=== PATIENT | female | born 1960 | race Caucasian/White ===

== ENCOUNTER → 2019-12-01 13:30 | Outpatient (CLI) | payer OTHER | END | disposition home or self-care (01) | LOC: D.MRI 13:30 | PROVIDERS: ATTEND Nurse Practitioner Family | DX: S83.242A Other tear of medial meniscus, current injury, left knee, initial encounter (principal) ==

== ENCOUNTER → 2020-04-30 13:17 | Outpatient (CLI) | payer OTHER | END | disposition home or self-care (01) | LOC: D.MRI 13:17 | PROVIDERS: ATTEND Nurse Practitioner Family | DX: S83.206A Unspecified tear of unspecified meniscus, current injury, right knee, initial encounter (principal) ==

== ENCOUNTER → 2020-07-14 18:27 | Outpatient (CLI) | payer OTHER | END | disposition home or self-care (01) | LOC: D.LABREF 18:27 | PROVIDERS: ATTEND Orthopaedic Surgery | DX: M17.11 Unilateral primary osteoarthritis, right knee (principal) ==

== ENCOUNTER 2020-08-17 12:29 | Observation (INO) | payer OTHER ==
[2020-08-11 11:22] LABS: BILIRUBIN NEGATIVE (NEGATIVE); KETONE NEGATIVE mg/dL (< 1+); NITRITE NEGATIVE (NEGATIVE); PH 6.5 (5.0-8.0); UROBILINOGEN NORMAL mg/dL (< 2)
[2020-08-11 12:58] LABS: BASOPHILS 0.7 % (0-2); EOSINOPHILS 1.2 % (0-7); HEMATOCRIT 41.6 % (36.0-48.0); HEMOGLOBIN 13.6 g/dL (12-16); LYMPHOCYTES 28.9 % (15-50); MCH 29.4 pg (26.0-34.0); MCHC 32.8 g/dL (31.0-37.0); MCV 89.7 fL (80.0-100.0); MEAN PLATELET VOLUME 8.7 fL (7.4-10.4); MONOCYTES 6.3 % (2-11); NEUTROPHILS 62.9 % (40-80); PLATELET COUNT 294 10x3/uL (130-400); RBC 4.63 10x6/uL (4.00-5.40); RDW 12.9 % (11.5-14.5); WBC 8.5 10x3/uL (4.8-10.8)
[2020-08-11 13:04] LABS: CALC OSMOLALITY 279 mosm/kg (275-300); CALCIUM 8.7 mg/dL (8.5-10.1); CARBON DIOXIDE 29.4 mmol/L (21.0-32.0); CHLORIDE - SERUM 102 mmol/L (98-107); CREATININE - SERUM 0.6 mg/dL (0.6-1.3); GLUCOSE 120 mg/dL (74-106); POTASSIUM - SERUM 3.8 mmol/L (3.5-5.1); SODIUM 140 mmol/L (136-145); UREA NITROGEN 13 mg/dL (7-18); eGFR NON AFRICAN AMERICAN > 90 mL/min (90-120)
[2020-08-11 13:12] LABS: APTT 28.2 SECONDS (22.8-39.4)
[2020-08-11 13:14] LABS: INR 1.1 (0.85-1.17); PROTIME 13.1 SECONDS (11.6-15.0)
[~2020-08-17] VITALS: Ht 154.9 cm; Wt 72.7 kg
[2020-08-17] VITALS (9 sets, daily range): BP systolic 97–138; BP diastolic 51–77; Ht 154.9 cm; Wt 72.7 kg
--- NOTE | 2020-08-17 11:09 | NUR ---
PT RECIVED SPINAL FROM ANESTHEISA BEFORE PROCEDURE. PT VOICES NO PAIN AT THIS TIME.
--- NOTE | 2020-08-17 11:40 | NUR ---
DISCUSSED PT BP WITH ANESTHEISA AIRPORT SECURITY SCREENER. MAP IS ABOVE 65. BP IS 90/48 RIGHT NOW. PT IS A&OX4. VSS. DENIES ANY PAIN. ANESTHIEA APPROVED FOR PT TO GO TO FLOOR LONG MAP STAYS ABOUVE 60.
--- NOTE | 2020-08-17 12:10 | NUR ---
TALKED WITH ANESTHEISA HEAD WAITER/WAITRESS FLORENTIN SUTTON. V.O TO GIVE 500ML LR BOLUS AT THIS TIME. V.O READ BACK CORRECT.
[~2020-08-17 12:29] MED LIST: AMBIEN10 MG PO; CELEBREX200 MG PO; ESTRACE1 MG PO; GABAPENTIN300 MG PO; LISINOPRIL5 MG PO
--- NOTE | 2020-08-17 12:30 | NUR ---
V.O FROM ANESTHEISA FLORENTIN FAMILY RESOURCE COORDINATOR TO GIVE 10MG IV EPHEDRINE AT THIS TIME. V.O READ BACK CORRECT.
--- NOTE | 2020-08-17 12:57 | NUR ---
HIBACLENS AND ALCOHOL USED TO CLEAN BEFORE PREPPING. STERILE GOWNED AND GLOVED TO PREP ENTIRE LEG. THROUGH TRAFFIC KEPT TO A MINIMUM.
--- NOTE | 2020-08-17 14:20 | OP ---
PATIENT NAME: GISSEL PATTERSON MEDICAL RECORD: [id number] :62 LOCATION:[id number] ADMISSION DATE:08/17/20 SURGEON: JAREN OSEGUERA DO DATE OF OPERATION: 08/17/2020 PROCEDURE PERFORMED: Right total knee arthroplasty. PREOPERATIVE DIAGNOSIS: Right knee osteoarthritis. POSTOPERATIVE DIAGNOSIS: Right knee osteoarthritis. INDICATIONS: Ms. Patterson is a 60-year-old female who has had right knee pain for quite some time. She has tried all manner of nonoperative treatment including injections, home physical therapy to no avail. She got to a point where she was tired dealing with the pain as it was affecting her activities of daily living and she wants something done surgically. She was aware of the risk of it including infection, bleeding, fracture, damage to nerves or vessels, need for further surgery, failure of implants, continued pain, blood clots and even . SURGEON: Jaren Oseguera DO OPERATIVE PROCEDURE: The patient received a spinal and a block by anesthesia in the preoperative area. He was taken to the operative suite, laid in supine position, given light sedation, given 2 grams of Ancef, 80 mg of gentamicin and a gram of TXA. The right lower extremity was then prepped and draped in sterile fashion. A timeout was performed. Everyone was in agreeance with the correct side, site, patient and procedure. I then marked out the incision, covered in Ioban. I then used a 10-blade scalpel, made careful dissection down through the skin to the capsule and used the fresh 10-blade to do a medial parapatellar approach through the capsule, coagulating any vessels with Aquamantys. I then everted the patella and removed the fat pad and milled the patella down to 13-mm. I then drilled for 29, 3-hole patellar implant and then exposed the femur, removed the ACL, drilled into the femoral canal and to the distal femur, cut off the intramedullary guide. Cement was ready, I cemented the patella. Put the cement after irrigating on the patella and on the implant and squeezed in into place and removed the excess cement. I then exposed the tibia and cut the proximal tibia and removed the menisci with the knee in extension. After removing the tibial cut, I then put the 10 extension block and it fit well. I then flexed the knee. There was one chunk on the lateral tibia of bone that I removed at that time and then measured the femur to be a 7. I used the 4-in-1 cutting block then after placing the block and using the agnes wing to ensure there was no notching. I pinned into place and cut the femur through the 4-in-1 cutting block. After doing that, I removed the cutting block and removed the bone, exposed the tibia and sized it to be a D. I pinned that and put the trial on. By that time, the cement had hardened and I had removed the squeezer on the patella. I then put on the trial femur and put a 10 poly in between. It fit very well. Had good motion, flexion, extension and good stability in varus valgus stress. I then drilled the lug holes on the femur, decided to go with a narrow, removed the femoral trial and then reamed the holes for the TM tibia. I then removed the trial and impacted on the implant after irrigating thoroughly and then impacted the femoral implant on and then put in the 10 poly medial congruent bearing and squeezed it into place. I then irrigated with 10% povidone iodine and 500 mL normal saline solution, it was for approximately 3 minutes and irrigated out with a liter of normal saline, put in Idris and OPERATIVE REPORT [id number] GISSEL PATTERSON vancomycin and tobramycin powder, then closed the capsule with #1 Vicryl in [id number] fashion. Chad Shen, certified surgical first aid teacher then closed over the capsule with a Stratafix. I then closed the skin with 2-0 Vicryl inverted interrupted fashion and placed a ZipLine, Adaptic, 4 x 4s, ABD, Webril, Byron wrap and a ALEXIA hose up to the knee. She was then awakened and taken to recovery in stable condition and given another gram of TXA. Blood loss was approximately 200 mL. COMPLICATIONS: None. TRANSINT:[id number] Voice Confirmation ID: [id number] DOCUMENT ID: [id number] JAREN OSEGUERA DO at 1429 CC: [id number] DICTATION DATE: 08/17/20 1144 MISCELLANEOUS MACHINE OPERATOR: 08/17/20 1409 ADM IN [facility] [address] [facility] [place] [address]
--- NOTE | 2020-08-17 15:31 | NUR ---
C/O PAIN TO RIGHT KNEE. STATES 5/. BP 109/54. TORADOL GIVEN IV. PATIENT STATES ONLY USES ADVIL OR MOTRIN AT HOME FOR PAIN CONTROL. CALL LIGHT IN REACH. FALL PRECAUTIONS IN PLACE
--- NOTE | 2020-08-17 16:44 | NUR ---
PLACED ON BEDPAN AND VOIDED LARGE AMOUNT. STATES TORADOL HELPED BUT NOT COMPLETELY OUT OF PAIN. FALL PRECAUTIONS IN PLACE AND ICE BAG TO KNEE
--- NOTE | 2020-08-17 16:59 | NUR ---
DR OSEGUERA CALLED REGARDING BP OF 102/57. PT STATES PAIN MED ONLY CONSIST OF MOTRIN AT HOME AND IS WHOOZY WITH ANYTHING STRONG. NEW ORDERS RECIEVED.
--- NOTE | 2020-08-17 18:01 | NUR ---
PLACED ON CPM MACHINE. STATES PAIN IS 7/10 NORCO GIVEN. CALL LIGHT IN REACH
--- NOTE | 2020-08-17 20:00 | NUR ---
ALERT RESTING IN BED CPM IN USE, REPORTS MILD PAIN TO RIGHT KNEE, SEE SHIFT ASSESSMENT, CALL LIGHT IN REACH
[2020-08-18 00:16] VITALS: BP 120/72
[2020-08-18 05:37] VITALS: BP 131/59
[2020-08-18 07:14] LABS: BASOPHILS 0.5 % (0-2); EOSINOPHILS 1.7 % (0-7); HEMATOCRIT 33.9 % (36.0-48.0); HEMOGLOBIN 11.2 g/dL (12-16); LYMPHOCYTES 14.7 % (15-50); MCH 29.4 pg (26.0-34.0); MCHC 33.1 g/dL (31.0-37.0); MCV 88.9 fL (80.0-100.0); MEAN PLATELET VOLUME 8.6 fL (7.4-10.4); MONOCYTES 12.1 % (2-11); PLATELET COUNT 253 10x3/uL (130-400); RBC 3.81 10x6/uL (4.00-5.40); RDW 13.5 % (11.5-14.5); WBC 8.8 10x3/uL (4.8-10.8)
[2020-08-18 08:00] LABS: ALBUMIN 2.8 g/dL (3.4-5.0); ALKALINE PHOSPHATASE 46 U/L (30-120); ALT (SGPT) 24 U/L (10-68); BILIRUBIN - TOTAL 0.35 mg/dL (0.2-1.3); CALC OSMOLALITY 272 mosm/kg (275-300); CALCIUM 7.4 mg/dL (8.5-10.1); CARBON DIOXIDE 26.9 mmol/L (21.0-32.0); CHLORIDE - SERUM 102 mmol/L (98-107); CREATININE - SERUM 0.4 mg/dL (0.6-1.3); GLUCOSE 108 mg/dL (74-106); POTASSIUM - SERUM 3.9 mmol/L (3.5-5.1); PROTEIN - SERUM 5.8 g/dL (6.4-8.2); SODIUM 137 mmol/L (136-145); UREA NITROGEN 8 mg/dL (7-18); eGFR NON AFRICAN AMERICAN > 90 mL/min (90-120)
[2020-08-18 09:38] VITALS: BP 117/72
[2020-08-18 13:27] VITALS: BP 112/70
[2020-08-18 17:23] VITALS: BP 140/73
--- NOTE | 2020-08-18 20:00 | NUR ---
ALERT RESTING IN BED CPM IN USE, REPORTS PAIN TO KNEE WITH MOVEMENT, SEE SHIFT ASSESSMENT, CALL LIGHT IN REACH
[2020-08-18 20:08] VITALS: BP 155/75
[2020-08-19 04:43] VITALS: BP 125/87
[2020-08-19 06:21] LABS: BASOPHILS 0.4 % (0-2); EOSINOPHILS 0.8 % (0-7); HEMATOCRIT 32.3 % (36.0-48.0); HEMOGLOBIN 10.9 g/dL (12-16); LYMPHOCYTES 18.7 % (15-50); MCH 29.8 pg (26.0-34.0); MCHC 33.7 g/dL (31.0-37.0); MCV 88.5 fL (80.0-100.0); MEAN PLATELET VOLUME 8.8 fL (7.4-10.4); MONOCYTES 14.6 % (2-11); NEUTROPHILS 65.5 % (40-80); PLATELET COUNT 256 10x3/uL (130-400); RBC 3.65 10x6/uL (4.00-5.40); WBC 10.3 10x3/uL (4.8-10.8)
[2020-08-19 06:29] LABS: ALBUMIN 2.8 g/dL (3.4-5.0); ALKALINE PHOSPHATASE 49 U/L (30-120); ALT (SGPT) 24 U/L (10-68); BILIRUBIN - TOTAL 0.46 mg/dL (0.2-1.3); CALC OSMOLALITY 275 mosm/kg (275-300); CALCIUM 8.2 mg/dL (8.5-10.1); CARBON DIOXIDE 30.4 mmol/L (21.0-32.0); CHLORIDE - SERUM 101 mmol/L (98-107); CREATININE - SERUM 0.5 mg/dL (0.6-1.3); GLUCOSE 106 mg/dL (74-106); POTASSIUM - SERUM 3.5 mmol/L (3.5-5.1); SODIUM 139 mmol/L (136-145); UREA NITROGEN 6 mg/dL (7-18); eGFR NON AFRICAN AMERICAN > 90 mL/min (90-120)
--- NOTE | 2020-08-19 07:58 | NUR ---
ALERT AND ORIENTED. ASSESSMENT COMPLETE. DENIES NEEDS. BED LOW. CALL JOSEPH AND PERSONAL ITEMS IN REACH. WILL CONTINUE TO MONITOR.
[2020-08-19] MEDS ORDERED: ELIQUIS2.5 MG PO (08:21)
[2020-08-19] MEDS ORDERED: VISTARIL50 MG PO (08:21)
[2020-08-19] MEDS ORDERED: HYDROCODON-ACE1 EA10 PO (08:21)
[2020-08-19 08:40] VITALS: BP 161/82
--- NOTE | 2020-08-19 10:00 | NUR ---
RESTING IN BED. DENIES NEEDS. WILL CONTINUE TO MONITOR.
--- NOTE | 2020-08-19 11:46 | MORECARE ---
CASE MANAGEMENT DISCHARGE SUMMARY PATIENT: GISSEL ABDULLAHI UNIT: [id number] ADM DATE: 08/17/20 AGE: 60 : 62 SEX: F ROOM/BED: [facility] AUTHOR: SHAHLA ZHENG PHYSICIAN: REFERRING PHYSICIAN: PAUL OSEGUERA DO DATE OF SERVICE: 08/19/20 Case Management Discharge Planning Summary DCP REVIEW SUMMARY ANTICIPATED D/C DATE: EXPECTED LOS : CASE STATUS: DCP Initiated INITIAL REVIEW: 08/17/2020 INITIAL REVIEWER: Anabel Hawley FINAL DISCHARGE DISPOSITION: : FINAL REVIEWER: FINAL REVIEW DATE: DCP Focus Questions & Answers QUESTION: ANSWER : PATIENT: GISSEL ABDULLAHI ENCOUNTER: [id number] MEDICAL RECORD#: [id number] ADMISSION DATE: 08/17/2020 DISCHARGE DATE: ATTENDING MD: PAUL SHEETS : AGE: 60 MARITAL STATUS: M DC PLAN ID: [id number] FACILITY: [facility] PRINTED ON: 08/19/20 11:46 CT All edits/amendments must be made on the electronic document DICTATION DATE: 08/19/20 1146 PLANNING OFFICIAL: DM 08/19/20 1146 RPT#: [id number] DC DATE: STATUS: ADM IN [facility] [address] [place] [address] END OF REPORT
--- NOTE | 2020-08-19 11:57 | MORECARE ---
CASE MANAGEMENT DISCHARGE SUMMARY PATIENT: GISSEL ABDULLAHI UNIT: [id number] ADM DATE: 08/17/20 AGE: 60 : 62 SEX: F ROOM/BED: .[facility] AUTHOR: NORM,DOC PHYSICIAN: REFERRING PHYSICIAN: PAUL OSEGUERA DO DATE OF SERVICE: 08/19/20 Case Management Discharge Planning Summary COMMENTS ENTERED DATE: 08/19/20 11:45 CT COMMENT TYPE: Discharge Planning REVIEWER: Anabel Hawley CM met with patient at bedside after obtaining verbal consent. CM discussed availability / needs of home health, REHAB and medical equipment. Patient statesneed inpatient rehab and is agreeable to go to [facility]. I have faxed over the referral and notified them, waiting call back. CM to follow and assist as needed. DCP REVIEW SUMMARY ANTICIPATED D/C DATE: EXPECTED LOS : CASE STATUS: DCP Initiated INITIAL REVIEW: 08/17/2020 INITIAL REVIEWER: Anabel Hawley FINAL DISCHARGE DISPOSITION: : FINAL REVIEWER: FINAL REVIEW DATE: DCP Focus Questions & Answers QUESTION: ANSWER : PATIENT: GISSEL ABDULLAHI ENCOUNTER: [id number] MEDICAL RECORD#: [id number] ADMISSION DATE: 08/17/2020 DISCHARGE DATE: ATTENDING MD: PAUL SHEETS : AGE: 60 MARITAL STATUS: M DC PLAN ID: [id number] FACILITY: [facility] PRINTED ON: 08/19/20 11:57 CT All edits/amendments must be made on the electronic document DICTATION DATE: 08/19/20 115 PAINTER SHIPYARD: SOLIS 08/19/20 1157 RPT#: [id number] DC DATE: STATUS: ADM IN [facility] [address] [place] [address] END OF REPORT
[2020-08-19 12:57] VITALS: BP 149/76
--- NOTE | 2020-08-19 15:12 | NUR ---
RESTING IN BED. DENIES NEEDS. WILL CONTINUE TO MONITOR.
--- NOTE | 2020-08-19 15:57 | MORECARE ---
CASE MANAGEMENT DISCHARGE SUMMARY PATIENT: GISSEL ABDULLAHI UNIT: [id number] ADM DATE: 08/17/20 AGE: 60 : 62 SEX: F ROOM/BED: D.2234 AUTHOR: NORM,DOC PHYSICIAN: REFERRING PHYSICIAN: PAUL OSEGUERA DO DATE OF SERVICE: 08/19/20 Case Management Discharge Planning Summary COMMENTS ENTERED DATE: 08/19/20 15:53 CT COMMENT TYPE: Discharge Planning REVIEWER: Anabel Hawley PATIENT INSURANCE WILL NOT PAY FOR INPATIENT REHAB. I SPOKE WITH PATIENT AND SHE WANTS OUTPATIENT PT HERE AT [facility]. ORDER FAXED AND MESSAGE LEFT ON ANSWER MACHINE. CM TO [facility] ASSIST NEEDED. IMM SIGNED ENTERED DATE: 08/19/20 11:45 CT COMMENT TYPE: Discharge Planning REVIEWER: Anabel Hawley CM met with patient at bedside after obtaining verbal consent. CM discussed availability / needs of home health, REHAB and medical equipment. Patient statesneed inpatient rehab and is agreeable to go to [facility]. I have faxed over the referral and notified them, waiting call back. CM to follow and assist as needed. DCP REVIEW SUMMARY ANTICIPATED D/C DATE: EXPECTED LOS : CASE STATUS: DCP Initiated INITIAL REVIEW: 08/17/2020 INITIAL REVIEWER: Anabel Hawley FINAL DISCHARGE DISPOSITION: : FINAL REVIEWER: FINAL REVIEW DATE: GAP Focus Questions & Answers QUESTION: ANSWER : PATIENT: GISSEL ABDULLAHI ENCOUNTER: [id number] MEDICAL RECORD#: [id number] ADMISSION DATE: 08/17/2020 DISCHARGE DATE: ATTENDING MD: PAUL SHEETS : AGE: 60 MARITAL STATUS: M DC PLAN ID: [id number] FACILITY: [facility] PRINTED ON: 08/19/20 15:57 CT All edits/amendments must be made on the electronic document DICTATION DATE: 08/19/201556 SENIOR SCRUM MASTER: SOLIS 08/19/20 155 RPT#: [id number] DC DATE: STATUS: ADM IN [facility] [address] [place] [address] END OF REPORT
--- NOTE | 2020-08-19 16:47 | NUR ---
DC EDUCATION PROVIDED BOTH WRITTEN AND VERBAL. VERBALIZED UNDERSTANDING. DENIES FURTHER QUESTIONS. IV REMOVED FROM LEFT HAND WITH TIP INTACT. DRSG CHANGED TO RIGHT KNEE PER ORDER. DRSGS X 5 PROVIDED TO PATIENT. RX FOR PRN PAIN MEDICATION PROVIDED TO PATIENT. PATIENT DENIES FURTHER NEEDS. WAITING RIDE.
--- NOTE | 2020-08-19 17:30 | NUR ---
PATIENT DC HOME WITH ALL BELONGINGS.
--- NOTE | 2020-08-19 17:33 | MORECARE ---
CASE MANAGEMENT DISCHARGE SUMMARY PATIENT: GISSEL ABDULLAHI UNIT: [id number] ADM DATE: 08/17/20 AGE: 60 : 62 SEX: F ROOM/BED: D.2234 AUTHOR: NORM,SHAHLA PHYSICIAN: REFERRING PHYSICIAN: PAUL OSEGUERA DO DATE OF SERVICE: 08/19/20 Case Management Discharge Planning Summary COMMENTS ENTERED DATE: 08/19/20 15:53 CT COMMENT TYPE: Discharge Planning REVIEWER: Anabel Hawley PATIENT INSURANCE WILL NOT PAY FOR INPATIENT REHAB. I SPOKE WITH PATIENT AND SHE WANTS OUTPATIENT PT HERE AT [facility]. ORDER FAXED AND MESSAGE LEFT ON ANSWER MACHINE. CM TO [facility] ASSIST NEEDED. IMM SIGNED ENTERED DATE: 08/19/20 11:45 CT COMMENT TYPE: Discharge Planning REVIEWER: Anabel Hawley CM met with patient at bedside after obtaining verbal consent. CM discussed availability / needs of home health, REHAB and medical equipment. Patient statesneed inpatient rehab and is agreeable to go to [facility]. I have faxed over the referral and notified them, waiting call back. CM to follow and assist as needed. DCP REVIEW SUMMARY ANTICIPATED D/C DATE: EXPECTED LOS : CASE STATUS: DCP Initiated INITIAL REVIEW: 08/17/2020 INITIAL REVIEWER: Anabel Hawley FINAL DISCHARGE DISPOSITION: : FINAL REVIEWER: FINAL REVIEW DATE: DCP Focus Questions & Answers QUESTION: ANSWER : PATIENT: GISSEL ABDULLAHI ENCOUNTER: [id number] MEDICAL RECORD#: [id number] ADMISSION DATE: 08/17/2020 DISCHARGE DATE: 08/19/2020 ATTENDING MD: PAUL SHEETS : AGE: 60 MARITAL STATUS: M DC PLAN ID: [id number] FACILITY: [facility] PRINTED ON: 08/19/20 17:33 CT All edits/amendments must be made on the electronic document DICTATION DATE: 08/19/201732 WEAPONS SYSTEM INSTRUMENT MECHANIC: SOLIS 08/19/201732 RPT#: [id number] DC DATE:08/19/20 STATUS: DIS IN [facility] [address] [place] [address] END OF REPORT
== END 2020-08-19 17:30 | disposition home or self-care (01) ==
LOC: D.OPS 12:29 → D.MS 12:32 → OBSVTIME 12:33 → D.OPS 13:00 → D.MS 08-19 17:30
PROVIDERS: Family Medicine; ADMIT Orthopaedic Surgery; ATTEND Orthopaedic Surgery
DX: M17.11 Unilateral primary osteoarthritis, right knee (principal); G89.29 Other chronic pain